=== PATIENT | female | born 1935 | race Caucasian/White ===

== ENCOUNTER 2017-11-19 07:51 | Outpatient (CLI) | payer OTHER | END 2017-11-19 09:29 | disposition home or self-care (01) | LOC: RAD 07:51 | DX: R13.11 Dysphagia, oral phase (principal) ==

== ENCOUNTER 2018-01-22 16:40 | Inpatient (IN) | payer OTHER ==
[~2018-01-22] VITALS: Ht 121.9 cm; Wt 5.0 kg
[2018-01-22] MEDS ORDERED: ENALAPRIL MALEA10 MG (16:58)
[2018-01-22] MEDS ORDERED: LIPITOR20 MG (16:58)
[2018-01-22] MEDS ORDERED: LYSIPLEX PLUS178 ML (16:59)
[2018-01-22] MEDS ORDERED: FOLIC ACID1 MG (16:59)
[2018-01-22] MEDS ORDERED: FERRO-TIME325 MG (16:59)
[2018-01-22] MEDS ORDERED: PANTOPRAZOLE SO40 MG (17:00)
[2018-01-22] MEDS ORDERED: ASPIR-LOW81 MG (17:00)
[2018-01-22] MEDS ORDERED: PENTOXIFYLLINE400 MG (17:01)
[2018-01-22] MEDS ORDERED: METOCLOPRAMIDE10 MG (17:01)
== END 2018-01-30 09:12 | disposition expired | DRG 870 ==
LOC: ER 16:40 → MEDI 01-23 10:29 → SEC-K 01-23 12:26 → MEDI 01-23 13:55 → ICU 01-25 17:39
PROC: 5A1955Z Respiratory Ventilation, Greater than 96 Consecutive Hours (ICD-10-PCS; principal; 2018-01-25)
PROC: 0BH17EZ Insertion of Endotracheal Airway into Trachea, Via Natural or Artificial Opening (ICD-10-PCS; 2018-01-25)
PROC: 3E0F7GC Introduction of Other Therapeutic Substance into Respiratory Tract, Via Natural or Artificial Opening (ICD-10-PCS; 2018-01-25)
PROC: 4A033R1 Measurement of Arterial Saturation, Peripheral, Percutaneous Approach (ICD-10-PCS; 2018-01-25)
PROC: B246ZZZ Ultrasonography of Right and Left Heart (ICD-10-PCS; 2018-01-25)
PROC: 4A12X4Z Monitoring of Cardiac Electrical Activity, External Approach (ICD-10-PCS; 2018-01-25)
PROC: 05H433Z Insertion of Infusion Device into Left Innominate Vein, Percutaneous Approach (ICD-10-PCS; 2018-01-27)
DX: A41.9 Sepsis, unspecified organism (principal); J96.01 Acute respiratory failure with hypoxia; I50.43 Acute on chronic combined systolic (congestive) and diastolic (congestive) heart failure; J69.0 Pneumonitis due to inhalation of food and vomit; R65.21 Severe sepsis with septic shock; E87.0 Hyperosmolality and hypernatremia; N39.0 Urinary tract infection, site not specified; J90 Pleural effusion, not elsewhere classified; A04.72 Enterocolitis due to Clostridium difficile, not specified as recurrent; A41.1 Sepsis due to other specified staphylococcus; E86.0 Dehydration; I69.391 Dysphagia following cerebral infarction; R13.19 Other dysphagia; I11.0 Hypertensive heart disease with heart failure; B96.29 Other Escherichia coli [E. coli] as the cause of diseases classified elsewhere; B95.2 Enterococcus as the cause of diseases classified elsewhere; B95.62 Methicillin resistant Staphylococcus aureus infection as the cause of diseases classified elsewhere; B96.1 Klebsiella pneumoniae [K. pneumoniae] as the cause of diseases classified elsewhere; I48.0 Paroxysmal atrial fibrillation; Z66 Do not resuscitate; R63.0 Anorexia; Z78.1 Physical restraint status; Z74.01 Bed confinement status; S09.8XXA Other specified injuries of head, initial encounter; X58.XXXA Exposure to other specified factors, initial encounter; Y93.89 Activity, other specified; Y92.89 Other specified places as the place of occurrence of the external cause; Y99.8 Other external cause status